=== PATIENT | female | born 1970 | race Asian ===

== ENCOUNTER 2024-02-23 16:47 | Emergency (ER) | payer OTHER ==
[2024-02-23 17:24] VITALS: TEMP 98.1; BMI 30.1
[2024-02-23] MEDS ORDERED: ACETAMINOPHEN INJECTION 100 ML ONE (18:27)
[2024-02-23 18:37] LABS: HEMATOCRIT 47.4 % (32.4-45.2); HEMOGLOBIN 15.6 G/dL (10.7-15.3); MCH 26.4 pg (25.7-33.7); MCHC 32.9 g/dl (32.0-36.0); MEAN PLT VOLUME 9.3 fl (7.5-11.1); PLATELET COUNT 336.9 10^3/uL (134-434); RBC 5.92 10^6/uL (3.60-5.2); RDW 15.3 % (11.6-15.6); WHITE BLOOD COUNT 17.6 10^3/uL (4.0-10.8)
[2024-02-23 18:45] LABS: INR 0.87 (0.83-1.09)
[2024-02-23 18:48] LABS: ACTIVATED PTT 29.8 SECONDS (25.2-36.5)
[2024-02-23] MEDS: ACETAMINOPHEN 1000 MG/100 ML BAG IVPB ONE (18:49)
[2024-02-23 18:56] LABS: ALBUMIN 4.9 g/dl (3.4-5.0); BILIRUBIN,TOTAL 0.5 mg/dl (0.2-1); CALCIUM 9.9 mg/dl (8.5-10.1); CREATININE 0.8 mg/dl (0.6-1.3); TOT PROT 7.7 g/dl (6.4-8.2)
[2024-02-23] MEDS: SODIUM CHLORIDE 0.9% 500 ML INFUS.BAG IV ONE (19:02)
[2024-02-23] MEDS: CEFTRIAXONE 1,000 MG in DEXTROSE 5%-WATER - 50 ML IVPB ONE (19:02)
[2024-02-23] MEDS ORDERED: cefTRIAXone SODIUM 1 GM VIAL ONE (19:03)
[2024-02-23 19:05] LABS: PLATELET ESTIMATE ADEQUATE
[2024-02-23 21:12] VITALS: BP 117/65; PULSE 100; RESP 18
== END 2024-02-23 21:38 | disposition home or self-care (01) ==
LOC: FER 16:47
PROC: 3E03329 Introduction of Other Anti-infective into Peripheral Vein, Percutaneous Approach (ICD-10-PCS; principal; 2024-02-23)
PROC: 3E033NZ Introduction of Analgesics, Hypnotics, Sedatives into Peripheral Vein, Percutaneous Approach (ICD-10-PCS; 2024-02-23)
DX: R31.9 Hematuria, unspecified (principal); R06.02 Shortness of breath; R30.0 Dysuria; R10.2 Pelvic and perineal pain; L29.2 Pruritus vulvae; R50.9 Fever, unspecified; R11.0 Nausea; R19.7 Diarrhea, unspecified
CPT/HCPCS: 36415; 71046-TC-FY; 71275-TC; 74177-TC; 80053; 81003; 81015; 84484; 85027; 85379; 85610; 85730; 86850; 86900; 86901; 87086; 87186; 93005; 99285-25; J0131; Q9967